=== PATIENT | male | born 1990 | race African-American/Black ===

== ENCOUNTER 2018-10-03 12:29 | Emergency (ER) | payer OTHER ==
[~2018-10-03] VITALS: Ht 177.8 cm; Wt 75.7 kg
[2018-10-03 12:45] VITALS: BP 132/79
--- NOTE | 2018-10-03 12:54 | Emergency Room Report ---
History of Present Illness General Chief Complaint: Male Urogenital Problems Source: Patient Present Illness HPI 28-year-old male patient presents the ER for evaluation for possible STI. Patient is currently being seen in the ER with his girlfriend who is here with complaints of vaginal discharge. Patient currently does not have any complaints , denies dysuria, hematuria, penile discharge. Denies penile rash or lesions. Denies testicular pain or swelling. Denies fever, chest pain, shortness of breath, abdominal pain, flank pain, vomiting. Patient would like to be covered for possible STI exposure. Allergies: Coded Allergies: No Known Allergies (Unverified , 10/03/18) Patient History Past Medical History: see triage record Reviewed Nursing Documentation: PMH: Agreed; PSxH: Agreed Nursing Documentation-PMH Past Medical History: No Stated History Review of Systems All Other Systems: negative except mentioned in HPI Physical Exam Vital Signs Date Time Temp Pulse Resp B/P (MAP) Pulse Ox O2 Delivery O2 Flow Rate FiO2 10/03/18 12:35 98.1 66 16 135/80 99 Room Air Sp02 EP Interpretation: reviewed, normal General Appearance: well appearing, no apparent distress, alert, GCS 15, non- toxic Head: normocephalic, atraumatic Eyes: bilateral eye normal inspection, bilateral eye PERRL ENT: hearing grossly normal, normal pharynx, no angioedema, normal voice, uvula midline, moist mucus membranes Neck: full range of motion Respiratory: lungs clear, normal breath sounds, no rhonchi, no respiratory distress, no accessory muscle use, no wheezing, speaking full sentences Cardiovascular #1: regular rate, rhythm, no edema Gastrointestinal: non tender, soft, no mass, non-distended, no guarding, no rebound Genitourinary: no CVA tenderness, deferred Musculoskeletal: back normal, digits/nails normal, gait/station normal, normal range of motion, non-tender Neurologic: alert, oriented x3, responsive, motor strength/tone normal, sensory intact Psychiatric: mood/affect normal Skin: no rash Medical Decision Making PA Attestation Dr. Puga is my supervising Physician whom patient management has been discussed with. Diagnostic Impression: Primary Impression: Encounter for assessment of sexually transmitted disease exposure ER Course Pt. presents to the ED c/o STI. Ddx considered but are not limited to gonorrhea, chalmydia, cystitis, pylonephritis, baterial vaginosis, yeast infection. Vital signs: are WNL, pt. is afebrile Ordered UA and abx. ER COURSE: UA results show no signs of acute infection. Does not require abx or antifungal treatment at this time. Provided patient with Rocephin and Azithromycin in the ER. Informed patient medications will cover for gonorrhea and chlamydia, needs further follow-up evaluation and possible treatment of other sexual transmitted infections. Advised to use safe sex practices including but not limited to use of condoms. Avoid sexual activity for the next 2 weeks. Instructed patient to follow up with STI clinic and/or PCP for STI evaluation and further treatment as necessary. Instructed patient to inform partners of needs for evaluation and treatment of possible infections. DISCHARGE: Patient is resting comfortably, in no acute distress, nontoxic appearing, talking without difficulty. Patient to take medications as instructed Will provide with patient care instructions and any necessary prescriptions. Care plan and follow-up instructions provided. Patient instructed to follow-up with primary care provider in 3 - 5 days. Patient questions asked and answered. Patient reports understanding and agreement to treatment plan. ER precautions given. Patient instructed to return to ER immediately for any new or worsening of symptoms including but not limited to increasing SOB, persistent fever. - Please note that this Emergency Department Report was dictated using [employer] helper technology software, occasionally this can lead to erroneous entry secondary to interpretation by the dictation equipment. Labs Test 10/03/18 12:40 Urine Color Yellow Urine Appearance Clear Urine pH 6 (4.5-8.0) Urine Specific Krypton 1.020 (1.005-1.035) Urine Protein Negative (NEGATIVE) Urine Glucose (UA) Negative (NEGATIVE) Urine Ketones 3+ (NEGATIVE) Urine Blood Negative (NEGATIVE) Urine Nitrite Negative (NEGATIVE) Urine Bilirubin Negative (NEGATIVE) Urine Urobilinogen Normal MG/DL (0.0-1.0) Urine Leukocyte Esterase Negative (NEGATIVE) Last Vital Signs Date Time Temp Pulse Resp B/P (MAP) Pulse Ox O2 Delivery O2 Flow Rate FiO2 10/03/18 12:45 98.4 65 16 132/79 99 Room Air Disposition: HOME, SELF-CARE Condition: Stable Scripts No Active Prescriptions or Reported Meds Patient Instructions: Sexually Transmitted Disease, [id number] Additional Instructions: Followup with primary care provider and followup with STI clinic for further evaluation and treatment. Alert sexual partners for need for evaluation and treatment. Wear condoms during sex. Avoid sexual activity for 2 weeks. Drink plenty of fluids. Patient questions asked and answered. ER precautions given, patient instructed to return to ER immediately for any new or worsening of symptoms. Jaswinder Leach Oct 03, 2018 12:54
[2018-10-03] MEDS ORDERED: Azithromycin 250mg tab ORAL ONE (13:00)
[2018-10-03] MEDS ORDERED: Lidocaine 1% MPF 10mg/ml 5ml INJ ONE (13:00)
[2018-10-03 13:15] LABS: APPEARANCE,URINE CLEAR; BILIRUBIN, URINE NEGATIVE (NEGATIVE); GLUCOSE, URINE (UA) NEGATIVE (NEGATIVE); KETONES,URINE 3+ (NEGATIVE); LEUKOCYTE ESTERASE ,URINE NEGATIVE (NEGATIVE); NITRITE,URINE NEGATIVE (NEGATIVE); PH,URINE 6 (4.5-8.0); PROTEIN,URINE NEGATIVE (NEGATIVE); UROBILINOGEN,URINE NORMAL MG/DL (0.0-1.0)
[2018-10-03 13:19] LABS: COLOR,URINE YELLOW
[2018-10-03 13:50] VITALS: BP 128/80
== END 2018-10-03 13:52 | disposition home or self-care (01) ==
LOC: EMR 13:38
DX: Z20.2 Contact with and (suspected) exposure to infections with a predominantly sexual mode of transmission (principal)
CPT/HCPCS: 81003; 96372; 96374; 99284; J0696; Q0144

== ENCOUNTER 2019-06-16 11:12 | Emergency (ER) | payer MEDICAID, OTHER ==
[~2019-06-16] VITALS: Ht 177.8 cm; Wt 77.1 kg
[2019-06-16 11:25] VITALS: BP 136/78
[2019-06-16] MEDS ORDERED: Azithromycin 250mg tab ORAL ONE (12:45)
[2019-06-16] MEDS ORDERED: Lidocaine 1% MPF 10mg/ml 5ml INJ ONE (12:45)
--- NOTE | 2019-06-16 12:50 | Emergency Room Report ---
History of Present Illness General Chief Complaint: Male Urogenital Problems Source: Patient Present Illness HPI 29-year-old male presents to the emergency department requesting medical treatment for exposure to venereal diseases. Patient reports that his told him 3 days ago that he needs to be treated after she was treated for venereal diseases receiving Rocephin and azithromycin covering for gonorrhea and chlamydia specifically. Patient denies penile discharge he denies testicular pain or tenderness he denies dysuria, hematuria, nausea, vomiting, fevers, chills, abdominal pain or tenderness. Patient denies any external genital lesions or rashes. Patient denies history of STIs in the past he has no other complaints, no aggravating or relieving factors at this time. Denies pain. Allergies: Coded Allergies: No Known Allergies (Unverified , 10/03/18) Patient History Past Medical History: see triage record Past Surgical History: none Pertinent Family History: none Reviewed Nursing Documentation: PMH: Agreed; PSxH: Agreed Nursing Documentation-PMH Past Medical History: No Stated History Review of Systems All Other Systems: negative except mentioned in HPI Physical Exam Vital Signs Date Time Temp Pulse Resp B/P (MAP) Pulse Ox O2 Delivery O2 Flow Rate FiO2 06/16/19 11:25 98.4 58 18 136/78 (97) 99 Room Air Sp02 EP Interpretation: reviewed, normal General Appearance: no apparent distress, alert, GCS 15, non-toxic Head: normocephalic, atraumatic Eyes: bilateral eye normal inspection, bilateral eye PERRL ENT: hearing grossly normal, normal voice Neck: full range of motion Respiratory: lungs clear, normal breath sounds, speaking full sentences Cardiovascular #1: regular rate, rhythm Gastrointestinal: non tender, soft, non-distended, no guarding Genitourinary: normal inspection, no CVA tenderness Musculoskeletal: back normal, gait/station normal, normal range of motion, non- tender Neurologic: alert, oriented x3, responsive, motor strength/tone normal, sensory intact, speech normal, grossly normal Psychiatric: judgement/insight normal Lymphatic: no adenopathy Medical Decision Making PA Attestation Dr. Morales Is my supervising Physician whom patient management has been discussed with. Diagnostic Impression: Primary Impression: Contact with or exposure to venereal diseases ER Course 29-year-old male presents to the emergency department requesting medical treatment for exposure to venereal diseases. Patient reports that his told him 3 days ago that he needs to be treated after she was treated for venereal diseases receiving Rocephin and azithromycin covering for gonorrhea and chlamydia specifically. Patient denies penile discharge he denies testicular pain or tenderness he denies dysuria, hematuria, nausea, vomiting, fevers, chills, abdominal pain or tenderness. Patient denies any external genital lesions or rashes. Patient denies history of STIs in the past he has no other complaints, no aggravating or relieving factors at this time. Denies pain. Ddx considered but are not limited to UTi , Urethritis, LGV, STI, Stone, Cystitis, prostatitis Vital signs: are WNL, pt. is afebrile H&PE are most consistent with Urethritis ORDERS: None required at this time patient is going to be treated prophylactically. ED INTERVENTIONS: -250mg Rocephin IM -1 g azithromycin PO DISCHARGE: At this time pt. is stable for d/c to home. Will provide printed patient care instructions, and any necessary prescriptions. Care plan and follow up instructions have been discussed with the patient prior to discharge. Last Vital Signs Date Time Temp Pulse Resp B/P (MAP) Pulse Ox O2 Delivery O2 Flow Rate FiO2 06/16/19 11:25 98.4 58 18 136/78 (97) 99 Room Air Disposition: HOME, SELF-CARE Condition: Stable Scripts No Active Prescriptions or Reported Meds Referrals: NOT CHOSEN IPA/MD,REFERRING (PCP) Patient Instructions: Medical Screening Exam, Sexually Transmitted Disease, [id number] Additional Instructions: Take medications as directed. REFRAIN FROM SEXUAL INTERCOURSE FOR 7 DAYS Follow up with a Primary Care Provider in 3-5 days, even if your symptoms have resolved. --Please review list of primary care clinics, if you do not already have a primary care provider Return sooner to ED if new symptoms occur, or current symptoms become worse. - Please note that this Emergency Department Report was dictated using [employer] transcription technology software, occasionally this can lead to erroneous entry secondary to interpretation by the dictation equipment. Raeann Jaramillo Jun 16, 2019 12:50
--- NOTE | 2019-06-16 13:02 | NUR ---
ER DISCHARGE NOTE: Patient is cleared to be discharged per SUHAS HAMMER, pt is aox4, on room air, with stable vital signs. pt was given dc instructions, pt was able to verbalize understanding, pt id band removed without complications. pt is able to ambulate with steady gait. pt took all belongings.
--- NOTE | 2019-06-16 13:03 | NUR ---
ED Nurse Note: Patient walked into ED as patient had intercourse with his partner, who is and was treated for bacterial vaginosis. patient is alert awake x4 ambulatory, denies any pain or discomfort at this time.
== END 2019-06-16 12:43 | disposition home or self-care (01) ==
LOC: EMR 11:42
DX: Z20.2 Contact with and (suspected) exposure to infections with a predominantly sexual mode of transmission (principal)
CPT/HCPCS: 96372; 99283; J0696; Q0144

== ENCOUNTER 2019-10-03 17:37 | Emergency (ER) | payer MEDICAID ==
[~2019-10-03] VITALS: Ht 177.8 cm; Wt 77.1 kg
[2019-10-03 17:50] VITALS: BP 126/85
--- NOTE | 2019-10-03 17:50 | NUR ---
ED Nurse Note: Patient arrived to ED by car from home complaining of flu-like symptoms x1 week. Patient states that blood came out of his nose along with intense sinuse pressur one week ago. Sinus pressure still persists, but it is much less. Patient is AxO x 4, no s/s of acute distress. Patient on the hall monitor, bed in lowest position. Blood and urine sent to lab.
--- NOTE | 2019-10-03 17:50 | NUR ---
Note tomasone in EDM - 10/03/19 at 1811 by [facility] ED Nurse Note: Patient arrived to ED by car from home complaining of flu-like . Patient is AxO x 4, no s/s of acute distress. Patient on the groundwater monitoring technician, bed in lowest position. Blood and urine sent to lab.
--- NOTE | 2019-10-03 18:01 | Emergency Room Report ---
History of Present Illness General Chief Complaint: Flu Like Symptoms Source: Patient Present Illness HPI Disclaimer: Please note that this report is being documented using [employer] technology. This can lead to erroneous entry secondary to incorrect interpretation by the dictating instrument. HPI: 29-year-old male with no medical history presents for evaluation of cough and hemoptysis. Patient states he has been fighting the "flu" for approximately 7 to 10 days. Last week he noted diffuse myalgias, subjective fevers, chills, nausea, vomiting, diarrhea and has had a intermittently productive cough this entire time. Today he had several coughing fits and spit out some blood-tinged sputum. He is reporting sinus congestion as well. Overall he states his symptoms are improving. No longer complaining of myalgias , no longer vomiting, no longer having diarrhea. He still reports some nausea. Denies fevers or chills currently. Wanted to have his cough evaluated. Did not receive a flu shot this year. PMH: Denies PSH: Denies Allergies: Denies Social Hx: Tobacco use, denies alcohol abuse Allergies: Coded Allergies: No Known Allergies (Unverified , 10/03/18) Nursing Documentation-PMH Past Medical History: No Stated History Review of Systems All Other Systems: negative except mentioned in HPI Physical Exam Vital Signs Date Time Temp Pulse Resp B/P (MAP) Pulse Ox O2 Delivery O2 Flow Rate FiO2 10/03/19 17:45 98.4 81 18 126/85 (99) 98 Room Air General: Awake and alert, no acute distress, afebrile HEENT: NC/AT. EOMI. anicteric sclera. Mild maxillary sinus tenderness. Erythematous pharynx. No edema or exudate. Uvula midline. Cardiovascular: RRR. S1 and S2 normal. No murmur appreciated Resp: Normal work of breathing. No cough, wheezing or crackles appreciated Abdomen: Abdomen is soft, nondistended. Nontender MSK: Normal tone and bulk. Moving all extremities. No obvious deformity. Neuro: Awake and alert. Mentating appropriately. Medical Decision Making Diagnostic Impression: Primary Impression: Cough Additional Impression: Viral illness ER Course 29-year-old male presents for evaluation of persistent cough with blood-tinged sputum today. He is afebrile, normal vital signs, well-appearing and I find no evidence of crackles, wheezes or other findings on his physical exam. Sounds like his viral syndrome is improving. X-ray does not show evidence of pneumonia. The patient be discharged with Zofran and continue NSAIDs. Discussed need for follow-up and reasons to return to the emergency department. He understands and agrees with this treatment plan will be discharged home. Chest X-Ray Diagnostic Results Chest X-Ray Diagnostic Results : Chest X-Ray Ordered: Yes # of Views/Limited/Complete: 2 View Indication: Other - cough Interpretation: no consolidation, no effusion, no pneumothorax, no acute cardiopulmonary disease Impression: No acute disease Electronically Signed by: Electronically signed by Dr. Jose Fletcher Last Vital Signs Date Time Temp Pulse Resp B/P (MAP) Pulse Ox O2 Delivery O2 Flow Rate FiO2 10/03/19 17:45 98.4 81 18 126/85 (99) 98 Room Air Disposition: HOME, SELF-CARE Condition: Stable Scripts Ondansetron Odt* (ZOFRAN ODT*) 4 Mg Tab.rapdis 4 MG BC EVERY 6 HOURS PRN for Nausea & Vomiting, #10 TAB 0 Refills Prov: Jose Fletcher MD 10/03/19 Jose Fletcher MD Oct 03, 2019 18:01
[2019-10-03] MEDS ORDERED: ONDANSETRON ODT4 MG BC (18:17)
[2019-10-03 18:25] VITALS: BP 124/85
--- NOTE | 2019-10-04 11:07 | Diagnostic Imaging Report ---
Indication: Cough Technique: 2 views of the chest Comparison: None Findings: Lungs and pleural spaces are clear. The heart size is normal. The bones are unremarkable. No significant interim change. Impression: Negative
== END 2019-10-03 18:25 | disposition home or self-care (01) ==
LOC: EMR 18:24
DX: R05 Cough (principal); B34.9 Viral infection, unspecified
CPT/HCPCS: 71046; Z7502; 99283